=== PATIENT | male | born 1960 | race Hispanic/Latino ===

== ENCOUNTER 2016-12-30 11:05 | Emergency (ER) | payer SELFPAY ==
--- NOTE | 2016-12-30 13:45 | Emergency Department Report ---
HPI - General Chief Complaint: Extremity Injury, Upper Time Seen by Provider: 12/30/16 13:26 - HPI HPI: he is a 56-year-old male who presents to ED complaining of right shoulder pain 2 weeks. Patient states he fell on his right shoulder about 2 weeks ago and hit the shoulder on the bandage. Patient states he thinks it might be dislocated is unsure. Patient states the first 2 days after the incident he was in some moderate pain pain was about a 8 out of 10 intensity throbbing in nature and nonradiating. Patient states now pain is about 4/10. Patient states he made a makeshift sling and has been wearing that for the past 2 weeks. Patient states he just couldn't get it checked because of her whatsoever he might need to have it reduced. Patient mentioned that he also injured his same shoulder above couple years ago. Patient denies fever/chills/nausea/vomiting/abdominal pain/chest pain//headaches /dizziness loss of sensation or any other problems. ED Past Medical Hx - Past Medical History Hx Hypertension: No Hx CVA: No Hx Heart Attack/AMI: No Hx Congestive Heart Failure: No Hx Diabetes: No Hx Deep Vein Thrombosis: No Hx Pulmonary Embolism: No Hx GERD: No Hx Liver Disease: No Hx Renal Disease: No Hx Sickle Cell Disease: No Hx Headaches / Migraines: No Hx Seizures: No Hx Kidney Stones: No Hx Psychiatric Treatment: No Hx Asthma: No Hx COPD: No Hx Tuberculosis: No Hx Dementia: No Hx HIV: No - Social History Smoking Status: Former Smoker Substance Use Type: Alcohol - Medications Home Medications: Home Medications Medication Instructions Recorded Confirmed Last Taken Type Ibuprofen [Motrin] 800 mg PO Q8HR PRN #30 tablet 12/30/16 Unknown Rx Labetalol [Normodyne TAB] 100 mg PO BID #40 tablet 12/30/16 Unknown Rx ED Review of Systems ROS: Stated complaint: RT SHOULDER PAIN Other details as noted in HPI Constitutional: denies: chills, fever Eyes: denies: eye pain, eye discharge, vision change ENT: denies: ear pain, throat pain Respiratory: denies: cough, shortness of breath, wheezing Cardiovascular: denies: chest pain, palpitations Endocrine: no symptoms reported Gastrointestinal: denies: abdominal pain, nausea, diarrhea Genitourinary: denies: urgency, dysuria Musculoskeletal: denies: back pain, joint swelling, arthralgia, myalgia Skin: denies: rash, lesions Neurological: denies: headache, weakness, paresthesias, abnormal gait Psychiatric: homicidal thoughts. denies: anxiety, depression Hematological/Lymphatic: denies: easy bleeding, easy bruising Physical Exam - Physical Exam Vital Signs: Vital Signs 12/30/16 11:08 Temperature 98.1 F Pulse Rate 74 Respiratory 16 Rate Blood Pressure 167/108 O2 Sat by Pulse 100 Oximetry Physical Exam: GENERAL: Alert and oriented x3, no apparent distress, Normal Gait, atraumatic. HEAD: Head is normocephalic and a-traumatic. EYES: Extra ocular muscles are intact. Pupils are equal, round, and reactive to light and accommodation. NECK: Supple. Non edematous, No carotid bruits. No lymphadenopathy or thyromegaly. LUNGS: Symetrical with respiration, No wheezing, no rales or crackles, CTAB. HEART: S1, S2 present, regular rate and rhythm without murmur, no rubs, no gallops. ABDOMEN: No organomegaly was noted,Positive bowel sounds, soft, and non- distended. . Nontender to palpation on all Quadrants, NO CVA tenderness. EXTREMITIES/MUSCULOSKELETAL: No cyanosis, clubbing, rash, lesions or edema. Full ROM bilaterally. UE Pulses 2+ bilaterally. UE 5+ strength bilaterally. Right shoulder looks mildly depressed compared to the left shoulder. Right Shoulder is mildly tender to palpation patient has full range of motion shoulder strength 5+ bilaterally. NEUROLOGIC: No focal Deficit, Cranial nerves II through XII are grossly intact. No loss of sensation, PSYCHIATRIC: Mood is congruent with affect, denies suicidal or homicidal ideations. SKIN: Warm and dry, No lesions, No ulceration or induration present. ED Course Vital Signs 12/30/16 11:08 Temperature 98.1 F Pulse Rate 74 Respiratory 16 Rate Blood Pressure 167/108 O2 Sat by Pulse 100 Oximetry ED Medical Decision Making - Medical Decision Making 66-year-old male presents with shoulder pain ED course: Shoulder x-ray ordered. x-ray shows possible humerus lesser tuberosity fracture;closed nondisplaced. This may be from old injury patient sustained years ago. The patient received clonidine 0.1 mg due to elevated blood pressure. Patient denies history of blood pressure Discussed x-ray findings the patient. Patient put in a sling to discharge. His constipation and follow up with orthopedic doctors as referred. Discussed the fractures heal on their own but needs to be followed up with her orthopedic doctor. Vital signs stable discussed the patient to follow up with primary care physician for management of blood pressure. Critical care attestation.: If time is entered above; I have spent that time in minutes in the direct care of this critically ill patient, excluding procedure time. ED Disposition Clinical Impression: Shoulder injury Qualifiers: Encounter type: initial encounter Laterality: right Qualified Code(s): S49.91XA - Unspecified injury of right shoulder and upper arm, initial encounter Closed fracture of lesser tuberosity of humerus Qualifiers: Encounter type: initial encounter Fracture alignment: nondisplaced Laterality: right Qualified Code(s): S42.264A - Nondisplaced fracture of lesser tuberosity of right humerus, initial encounter for closed fracture Disposition: DISCHARGED TO HOME OR SELFCARE Is pt being admited?: No Does the pt Need Aspirin: No Condition: Stable Instructions: Shoulder Sprain (ED), Arm Fracture in Adults (ED), Arthralgia (ED ) Prescriptions: Ibuprofen [Motrin] 800 mg PO Q8HR PRN #30 tablet PRN Reason: Pain Labetalol [Normodyne TAB] 100 mg PO BID #40 tablet Referrals: PRIMARY CAREMD [Primary Care Provider] - 3-5 Days JURGEN ALMANZA MD [Staff Physician] - 3-5 Days MARIZOL TSAI MD [Staff Physician] - 3-5 Days JU NEFF MD [Referring] - 3-5 Days Forms: Accompanied Note, Work/School Release Form(ED) Time of Disposition: 14:48
[2016-12-30] MEDS ORDERED: CATAPRES PO ONE (13:47)
--- NOTE | 2016-12-30 14:31 | XRay Report ---
Right shoulder 3 views: History: Fall. Findings: There is suspicion of fracture lesser tuberosity right humerus. The articulation of the glenohumeral joint and a.c. joint appears unremarkable. No fracture. Impression: Suspicion of fracture lesser tuberosity right humerus. If clinically indicated CT scan may be advised.
[2016-12-30 15:07] VITALS: BP 148/90
== END 2016-12-30 15:07 | disposition home or self-care (01) ==
LOC: ED 11:05
DX: S42.264A Nondisplaced fracture of lesser tuberosity of right humerus, initial encounter for closed fracture (principal); W18.30XA Fall on same level, unspecified, initial encounter; Y93.9 Activity, unspecified; Y92.9 Unspecified place or not applicable; Y99.9 Unspecified external cause status
CPT/HCPCS: 99284

== ENCOUNTER 2018-07-08 17:14 | Inpatient (IN) | payer SELFPAY ==
[2018-07-08] MEDS ORDERED: NACL 0.9% 1000 ML 1,000 ML IV ONE (18:23)
--- NOTE | 2018-07-08 18:29 | Emergency Department Report ---
<DESEAN VEGA - Last Filed: 07/08/18 20:46> ED General Adult HPI - General Chief complaint: Weakness Stated complaint: GENRAL WEAKNESS Time Seen by Provider: 07/08/18 18:23 - Related Data Previous Rx's Medication Instructions Recorded Last Taken Type Ibuprofen [Motrin] 800 mg PO Q8HR PRN #30 tablet 12/30/16 Unknown Rx Labetalol [Normodyne TAB] 100 mg PO BID #40 tablet 12/30/16 Unknown Rx Allergies Allergy/AdvReac Type Severity Reaction Status Date / Time No Known Allergies Allergy Unverified 11/15/14 18:30 ED Review of Systems ROS: Stated complaint: GENRAL WEAKNESS Other details as noted in HPI ED Past Medical Hx - Medications Home Medications: Home Medications Medication Instructions Recorded Confirmed Last Taken Type Ibuprofen [Motrin] 800 mg PO Q8HR PRN #30 tablet 12/30/16 Unknown Rx Labetalol [Normodyne TAB] 100 mg PO BID #40 tablet 12/30/16 Unknown Rx ED Course Vital Signs 07/08/18 07/08/18 07/08/18 18:08 21:07 21:15 Temperature 98.5 F Pulse Rate 92 H 96 H Respiratory 18 17 Rate Blood Pressure 160/106 132/85 O2 Sat by Pulse 99 97 Oximetry 07/08/18 07/08/18 07/08/18 21:30 21:45 22:01 Temperature Pulse Rate 83 79 81 Respiratory 22 13 9 L Rate Blood Pressure 141/81 155/96 123/82 O2 Sat by Pulse 99 93 97 Oximetry 07/08/18 07/08/18 22:15 22:30 Temperature Pulse Rate 78 79 Respiratory 12 10 L Rate Blood Pressure 120/84 122/81 O2 Sat by Pulse 97 97 Oximetry ED Medical Decision Making - Lab Data Result diagrams: 07/08/18 18:42 07/08/18 18:42 - Medical Decision Making I assessed patient. He presents with severe generalized weakness. He was unable to walk at his job. 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 He has had epigastric pain for 5 days. Has not drank beer for the past 5 days. Patient has several findings on diagnostics performed in ED. I did observe tea colored urine at the bedside. Typically drinks 3-5 beers daily. 1. Diverticulitis 2. Esophagitis 3. Pancreatitis 4. Hyponatremia 5. Fatty liver Admitted to hospitalist service for further treatment and evaluation. IVF and abx initiated in ED. Critical care attestation.: If time is entered above; I have spent that time in minutes in the direct care of this critically ill patient, excluding procedure time. ED Disposition Clinical Impression: Rhabdomyolysis, Pancreatitis, Diverticulitis, Fatty liver, Hyponatremia, Alcohol abuse, Esophagitis Disposition: OP ADMIT IP TO THIS HOSP Is pt being admited?: Yes Does the pt Need Aspirin: No Condition: Stable <AUDRA CALDWELL - Last Filed: 07/09/18 20:12> ED General Adult HPI - General Source: patient Mode of arrival: Stretcher Limitations: No Limitations - History of Present Illness Initial comments: Patient is 58 years old male with no significant past medical history. Patient presented to the ER with generalized weakness, chest pain and abdominal pain. Patient stated that his symptoms is been going on for 3 days. Patient stated that he does not remember the last time he checked with her doctor. He stated that he was a heavy smoker until 3 months ago. He is also a heavy drinker. The patient stated that he does not have any appetite for the last 3 days. He denied any vomiting or diarrhea. He also denied any fever or chills. ED Review of Systems Comment: All other systems reviewed and negative Constitutional: denies: chills, fever ENT: denies: ear pain, throat pain, dental pain, hearing loss Respiratory: orthopnea, shortness of breath, SOB with exertion. denies: cough, wheezing Cardiovascular: dyspnea on exertion. denies: chest pain, palpitations Gastrointestinal: nausea. denies: abdominal pain, vomiting, diarrhea, constipation, hematemesis, melena, hematochezia Genitourinary: denies: dysuria Neurological: weakness. denies: headache, numbness, paresthesias, confusion, abnormal gait ED Past Medical Hx - Past Medical History Hx Hypertension: No Hx CVA: No Hx Heart Attack/AMI: No Hx Congestive Heart Failure: No Hx Diabetes: No Hx Deep Vein Thrombosis: No Hx Pulmonary Embolism: No Hx GERD: No Hx Liver Disease: No Hx Renal Disease: No Hx Sickle Cell Disease: No Hx Headaches / Migraines: No Hx Seizures: No Hx Kidney Stones: No Hx Psychiatric Treatment: No Hx Asthma: No Hx COPD: No Hx Tuberculosis: No Hx Dementia: No Hx HIV: No - Social History Smoking Status: Former Smoker Substance Use Type: Alcohol ED Physical Exam - General Limitations: No Limitations General appearance: alert, in no apparent distress - Head Head exam: Present: atraumatic, normocephalic, normal inspection - Eye Eye exam: Present: normal appearance, PERRL - ENT ENT exam: Present: mucous membranes dry - Neck Neck exam: Present: normal inspection, full ROM. Absent: tenderness, meningismus, lymphadenopathy, thyromegaly - Respiratory Respiratory exam: Present: normal lung sounds bilaterally. Absent: respiratory distress, wheezes, rales, rhonchi, stridor, chest wall tenderness, accessory muscle use, decreased breath sounds, prolonged expiratory - Cardiovascular Cardiovascular Exam: Present: regular rate, normal rhythm, normal heart sounds - GI/Abdominal GI/Abdominal exam: Present: soft, tenderness, normal bowel sounds. Absent: distended, guarding, rebound, rigid, organomegaly, mass, bruit, pulsatile mass, hernia - Extremities Exam Extremities exam: Present: normal inspection, full ROM, normal capillary refill. Absent: pedal edema, calf tenderness - Back Exam Back exam: Present: normal inspection, full ROM. Absent: tenderness, CVA tenderness (R), CVA tenderness (L), muscle spasm, paraspinal tenderness, vertebral tenderness, rash noted - Neurological Exam Neurological exam: Present: alert, oriented X3, CN II-XII intact - Skin Skin exam: Present: warm, dry, intact ED Medical Decision Making - Lab Data Result diagrams: 07/09/18 03:22 07/09/18 03:22 - Radiology Data Radiology results: report reviewed Referring Physician: AUDRA CALDWELL Patient Name: MARJORIE CHIU Date of : 1960 Sex: Male Report Date: 2018-07-08 Report Status: Finalized Findings [facility] [address] [place] [address] XRay Report Signed Patient: MARJORIE CHIU MR#: [id number] : 1960 Acct:[id number] Age/Sex: 58 / M ADM Date: 07/08/18 Loc: ED Attending Dr: Ordering Physician: AUDRA CALDWELL Date of Service: 07/08/18 Procedure(s): XR chest 1V ap Accession Number(s): [id number] cc: AUDRA CALDWELL Fluoro Time In Minutes: FINAL REPORT EXAM: XR CHEST 1V AP HISTORY: Weakness TECHNIQUE: Single, portable chest x-ray. PRIORS: None. FINDINGS: Cardiac and mediastinal silhouette within normal limits. Lungs are normally expanded. No significant vascular congestion. No focal consolidation or apparent pneumothorax. Bony thorax grossly unremarkable. IMPRESSION: 1. No acute findings. Transcribed By: [facility] Dictated By: FLEX VELA MD Electronically Authenticated By: FLEX VELA MD Signed Date/Time: 07/08/181906 DD/ 06 TD/TT: 07/08/181906 Critical Care Time: Yes Critical care time in (mins) excluding proc time.: 30 ED Disposition Is pt being admited?: Yes Does the pt Need Aspirin: No
[2018-07-08 19:00] LABS: Hematocrit 34.8 % (35.5-45.6); Mean Corpuscular HGB Conc 35 % (32-34); Mean Corpuscular Hemoglobin 35 pg (28-32); Mean Corpuscular Volume 102 fl (84-94); Platelet Count 187 K/mm3 (140-440); Red Blood Count 3.42 M/mm3 (3.65-5.03); Red Cell Distribution Width 12.2 % (13.2-15.2)
[2018-07-08 19:03] LABS: INR 0.95 (0.87-1.13)
--- NOTE | 2018-07-08 19:10 | XRay Report ---
FINAL REPORT EXAM: XR CHEST 1V AP HISTORY: Weakness TECHNIQUE: Single, portable chest x-ray. PRIORS: None. FINDINGS: Cardiac and mediastinal silhouette within normal limits. Lungs are normally expanded. No significant vascular congestion. No focal consolidation or apparent pneumothorax. Bony thorax grossly unremarkable. IMPRESSION: 1. No acute findings.
[2018-07-08 19:15] LABS: Albumin 3.5 g/dL (3.9-5); Bilirubin,Direct 1.2 mg/dL (0-0.2)
[2018-07-08 19:16] LABS: BUN/Creatinine Ratio 46; Blood Urea Nitrogen 23 mg/dL (9-20); Calcium 8.4 mg/dL (8.4-10.2); Hemolysis Index 19
[2018-07-08 19:40] LABS: Bilirubin,Urine NEG (Negative); Blood,Urine SM (Negative); Color,Urine Amber (Yellow); Hyaline Casts,Urine 1 /LPF; Mucus,Urine FEW /HPF
[2018-07-08 20:05] LABS: Total Cells Counted 100
[2018-07-08 20:06] LABS: Band Neutrophils # (Manual) 0.2 K/mm3; Basophils % (Manual) 0 % (0.0-1.8); Eosinophils % (Manual) 0 % (0.0-4.3); Macrocytosis 1+; Platelet Estimate Consistent w Auto
[2018-07-08] MEDS ORDERED: PROTONIX IV ONE (20:52)
[2018-07-08] MEDS ORDERED: ZOFRAN IV ONE (20:52)
[2018-07-08] MEDS ORDERED: MORPHINE IV ONE (20:52)
[2018-07-08] MEDS ORDERED: ZOSYN/NS 4.5GM/100ML 4.5 GM/100 ML VIAL IV SCH (21:00)
--- NOTE | 2018-07-08 21:38 | Cat Scan Report ---
FINAL REPORT EXAM: CT ABDOMEN PELVIS W CON HISTORY: abdominal pain TECHNIQUE: Spiral CT scanning of the abdomen and pelvis after the uneventful administration of IV contrast. Multiplanar reformations. 100 mL Omnipaque IV. PRIORS: None. FINDINGS: Abdomen: Visualized lung bases show minimal left pleural fluid. Mild cardiomegaly. Bowel Distal esophagus and EG junction decompressed, with questionable wall thickening and amorphous and heterogeneous soft tissue density in the posterior mediastinum partially surrounding the distal thoracic aorta, which may be postinflammatory, but nonspecific. No radiopaque gallstones. Liver shows diffusely decreased attenuation without focal abnormality. Spleen without significant abnormality. Pancreatic head prominent and mildly lobular, nonspecific. Dystrophic calcifications in the uncinate process and heterogeneous enhancement in the distal pancreatic body, with possible cystic change measuring approximately 1.5 cm. No significant peripancreatic fat stranding or inflammatory infiltration. Kidneys without significant abnormality. Adrenal glands without significant abnormality. Pelvis: Diverticular changes scattered in the colon, with bowel wall and fold thickening and pericolonic fat stranding in the proximal-mid descending colon. Remainder of bowel grossly unremarkable. Appendix within normal limits. No significant free peritoneal fluid or discrete abscess. Diffuse aortoiliac calcification without aneurysmal dilatation. Degenerative changes in thoracolumbar spine. Partially bridging osteophyte formations in left SI joint and pubic symphysis region. IMPRESSION: 1. Findings compatible with descending colon diverticulitis. 2. Findings which may represent nonspecific postinflammatory change in the distal esophagus or esophagitis, including phlegmonous change in the surrounding soft tissues, as reported. Exact etiology uncertain, and clinical correlation along with followup may be warranted. 3. Findings compatible with fatty infiltration in the liver. 4. Findings suggesting sequelae of postinflammatory change involving the pancreas, probably chronic, with prominent head and possible cystic change or pseudocyst formation in the distal body, although exact etiology or chronicity uncertain. Clinical correlation with appropriate laboratory values and followup suggested, as clinically indicated.
[2018-07-08] MEDS ORDERED: MORPHINE IV PRN (21:58)
[2018-07-08] MEDS ORDERED: ZOFRAN IV PRN (21:58)
[2018-07-08] MEDS ORDERED: TYLENOL PO PRN (21:58)
[2018-07-08] MEDS ORDERED: SODIUM CHLORIDE FLUSH SYRINGE 10 ML IV PRN (21:58)
[2018-07-08] MEDS ORDERED: ATIVAN IV PRN ×2 (22:01)
[2018-07-08] MEDS: SODIUM CHLORIDE FLUSH SYRINGE 10 ML IV SCH (22:17)
--- NOTE | 2018-07-08 22:17 | History and Physical Report ---
History of Present Illness Date of examination: 07/08/18 History of present illness: 58-year-old man with a history of alcohol abuse comes emergency room with complaints of abdominal pain in the epigastric area, he is unclear when he started. The pain is intermittent in nature over one hour, sharp, no radiation , intensity 7/10, relieved with pain medications.. Denies nausea vomiting, fever. His last drink was 5 days ago Review of systems Constitutional: no weight loss, chills, fever Ears, eyes, nose, mouth and throat: no nasal congestion, no nasal discharge, no sinus pressure, no vision change, no red eye. Neck: No neck pain or rigidity. Cardiovascular: no chest pain, palpitations Respiratory: no cough, shortness of breath Gastrointestinal: no hematochezia Genitourinary : no frequency , no hematuria Musculoskeletal: no joint swelling or muscle ache Integumentary: no rash, no pruritis Neurological: no parathesias, no numbness, no focal weakness Endocrine: no cold or heat intolerance, no polyuria or polydipsia Hematologic/Lymphatic: no easy bruising, no easy bleeding, no gland swelling Allergic/Immunologic: no urticaria, no angioedema. PAST MEDICAL HISTORY: alcohol abuse PAST SURGICAL HISTORY: None SOCIAL HISTORY: Drinks a lot, no drugs, quit tobacco FAMILY HISTORY: Hypertension Medications and Allergies Allergies Allergy/AdvReac Type Severity Reaction Status Date / Time No Known Allergies Allergy Unverified 11/15/14 18:30 Home Medications Medication Instructions Recorded Confirmed Last Taken Type Ibuprofen [Motrin] 800 mg PO Q8HR PRN #30 tablet 12/30/16 Unknown Rx Labetalol [Normodyne TAB] 100 mg PO BID #40 tablet 12/30/16 Unknown Rx Active Meds: Active Medications Acetaminophen (Tylenol) 650 mg PO Q4H PRN PRN Reason: Pain MILD(1-3)/Fever >100.5/MAR Enoxaparin Sodium (Lovenox) 30 mg SUB-Q QDAY COTY Levofloxacin/Dextrose (Levaquin 750mg/150ml) 750 mg in 150 mls @ 100 mls/hr IV Q24H COTY Metronidazole (Flagyl 500 Mg/100 Ml) 500 mg in 100 mls @ 100 mls/hr IV Q8HR COTY ; Protocol Sodium Chloride (Nacl 0.9% 1000 Ml) 1,000 mls @ 150 mls/hr IV DIRECT COTY Morphine Sulfate (Morphine) 2 mg IV Q4H PRN PRN Reason: Pain, Moderate (4-6) Ondansetron HCl (Zofran) 4 mg IV Q8H PRN PRN Reason: Nausea And Vomiting Sodium Chloride (Sodium Chloride Flush Syringe 10 Ml) 10 ml IV BID COTY Sodium Chloride (Sodium Chloride Flush Syringe 10 Ml) 10 ml IV PRN PRN PRN Reason: LINE FLUSH Exam - Physical Exam Narrative exam: Gen. appearance: Patient lying in bed, no apparent distress HEENT: Normocephalic, atraumatic, pupils equally round and reactive to light, extraocular movement intact, and no sclericterus,. No JVD or thyromegaly or nodule,neck supple, no carotid bruit ,mucous membranes moist, no exudate or erythema Heart: S1, S2, regular rate and rhythm Lungs: Clear bilaterally, breathing comfortable Abdomen: Positive bowel sounds, tender in the epigastric, left lower quadrant, nondistended, no organomegaly Extremity:no edema cyanosis, clubbing Skin: no rash, dry, warm Neuro: Oriented 3, cranial nerves II-12 intact, speech is fluent, motor and sensory intact - Constitutional Vitals: Temp Pulse Resp BP Pulse Ox 98.5 F 96 H 17 132/85 97 07/08/18 18:08 07/08/18 21:15 07/08/18 21:15 07/08/18 21:15 07/08/18 21:15 Results - Labs CBC & Chem 7: 07/09/18 03:22 07/09/18 03:22 Labs: Abnormal lab results 07/08/18 07/08/18 07/08/18 Range/Units 18:42 18:42 18:42 RBC 3.42 L (3.65-5.03) M/mm3 Hct 34.8 L (35.5-45.6) % MCV 102 H (84-94) fl MCH 35 H (28-32) pg MCHC 35 H (32-34) % RDW 12.2 L (13.2-15.2) % Seg Neuts % (Manual) 93.0 H (40.0-70.0) % Lymphocytes % (Manual) 1.0 L (13.4-35.0) % Lymphocytes # (Manual) 0.1 L (1.2-5.4) K/mm3 Sodium 125 L (137-145) mmol/L Chloride 84.8 L (98-107) mmol/L BUN 23 H (9-20) mg/dL Creatinine 0.5 L (0.8-1.5) mg/dL Glucose 107 H (75-100) mg/dL Total Bilirubin 3.00 H (0.1-1.2) mg/dL Direct Bilirubin 1.2 H (0-0.2) mg/dL AST 173 H (5-40) units/L ALT 73 H (7-56) units/L Total Creatine Kinase 2923 H (55-170) units/L Albumin 3.5 L (3.9-5) g/dL Lipase 378 H (13-60) units/L Urine WBC (Auto) (0.0-6.0) /HPF 07/08/18 Range/Units 19:18 RBC (3.65-5.03) M/mm3 Hct (35.5-45.6) % MCV (84-94) fl MCH (28-32) pg MCHC (32-34) % RDW (13.2-15.2) % Seg Neuts % (Manual) (40.0-70.0) % Lymphocytes % (Manual) (13.4-35.0) % Lymphocytes # (Manual) (1.2-5.4) K/mm3 Sodium (137-145) mmol/L Chloride (98-107) mmol/L BUN (9-20) mg/dL Creatinine (0.8-1.5) mg/dL Glucose (75-100) mg/dL Total Bilirubin (0.1-1.2) mg/dL Direct Bilirubin (0-0.2) mg/dL AST (5-40) units/L ALT (7-56) units/L Total Creatine Kinase (55-170) units/L Albumin (3.9-5) g/dL Lipase (13-60) units/L Urine WBC (Auto) 7.0 H (0.0-6.0) /HPF - Imaging and Cardiology CT scan - abdomen: report reviewed CT scan - pelvis: report reviewed Assessment and Plan Assessment Acute diverticulitis Alcohol abuse Plan Admit to medicine Start IV fluids, bowel rest Start IV Levaquin, Flagyl, morphine, CIWA protocol consult GI DVT prophalaxis
[2018-07-08] MEDS: FLAGYL 500 MG/100 ML 500 MG/100 ML BAG IV SCH (22:36)
[2018-07-09] MEDS: LEVAQUIN 750MG/150ML 750 MG/150 ML BAG IV SCH ×2 (00:07→22:13)
[2018-07-09] MEDS: NACL 0.9% 1000 ML 1,000 ML IV SCH ×2 (00:08→21:04)
[2018-07-09 03:52] LABS: Basophils # (Auto) 0.1 K/mm3 (0.0-0.1); Basophils % (Auto) 1.1 % (0.0-1.8); Eosinophils % (Auto) 0.2 % (0.0-4.3); Hematocrit 33.3 % (35.5-45.6); Hemoglobin 11.3 gm/dl (11.8-15.2); Lymphocytes % (Auto) 15.4 % (13.4-35.0); Mean Corpuscular HGB Conc 34 % (32-34); Mean Corpuscular Hemoglobin 35 pg (28-32); Mean Corpuscular Volume 102 fl (84-94); Monocytes % (Auto) 15.3 % (0.0-7.3); Red Blood Count 3.26 M/mm3 (3.65-5.03); Red Cell Distribution Width 12.4 % (13.2-15.2)
[2018-07-09 04:10] LABS: BUN/Creatinine Ratio 43; Blood Urea Nitrogen 17 mg/dL (9-20); Calcium 7.9 mg/dL (8.4-10.2); Hemolysis Index 13
[2018-07-09 04:21] LABS: Platelet Count 169 K/mm3 (140-440)
[2018-07-09] MEDS: FLAGYL 500 MG/100 ML 500 MG/100 ML BAG IV SCH ×3 (06:49→21:04)
[2018-07-09] MEDS ORDERED: LOVENOX SUB-Q SCH (10:00)
[2018-07-09] MEDS: LOVENOX SUB-Q SCH (10:03)
[2018-07-09] MEDS: SODIUM CHLORIDE FLUSH SYRINGE 10 ML IV SCH ×2 (10:04→21:04)
--- NOTE | 2018-07-09 10:51 | Progress Note ---
Assessment and Plan Assessment and plan: 58-year-old male with past medical history significant for alcohol abuse presented to the emergency department complaining of epigastric pain. Patient denied nausea, vomiting, diarrhea. In the ED CT of abdomen and pelvis was done and was significant for pancreatitis, diverticulitis and esophagitis. Diverticulitis - Patient is on IV Levaquin and Flagyl - GI consulted Pancreatitis - Bowel rest, pain control - Consulted about cessation of using alcohol Esophagitis - PPI Alcohol abuse -Patient is on [facility] protocol DVT prophylaxis - On Lovenox Disposition - Continue inpatient care History Interval history: Patient was seen and evaluated this morning, patient is complaining of abdominal pain. No nausea or vomiting. Hospitalist Physical - Physical exam Narrative exam: Not in cardiopulmonary distress. The patient appeared well nourished and normally developed. Vital signs as documented. Head exam is unremarkable. No scleral icterus . Neck is without jugular venous distension, thyromegaly, or carotid bruits. Lungs are clear to auscultation. Cardiac exam reveals regular rate and Rhythm. First and second heart sounds normal. No murmurs, rubs or gallops. Abdominal exam reveals mild abdominal tenderness. Extremities are nonedematous and both femoral and pedal pulses are normal. [employer]: Alert and oriented 3. No focal weakness. - Constitutional Vitals: Temp Pulse Resp BP Pulse Ox 98.2 F 98 H 18 159/100 97 07/09/18 07:35 07/09/18 09:00 07/09/18 07:35 07/09/18 07:35 07/09/18 07:35 Results - Labs CBC & Chem 7: 07/09/18 03:22 07/09/18 03:22 Labs: Laboratory Last Values WBC 6.4 K/mm3 (4.5-11.0) 07/09/18 03:22 RBC 3.26 M/mm3 (3.65-5.03) L 07/09/18 03:22 Hgb 11.3 gm/dl (11.8-15.2) L 07/09/18 03:22 Hct 33.3 % (35.5-45.6) L 07/09/18 03:22 MCV 102 fl (84-94) H 07/09/18 03:22 MCH 35 pg (28-32) H 07/09/18 03:22 MCHC 34 % (32-34) 07/09/18 03:22 RDW 12.4 % (13.2-15.2) L 07/09/18 03:22 Plt Count 169 K/mm3 (140-440) 07/09/18 03:22 Lymph % (Auto) 15.4 % (13.4-35.0) 07/09/18 03:22 [place] % (Auto) 15.3 % (0.0-7.3) H 07/09/18 03:22 Eos % (Auto) 0.2 % (0.0-4.3) 07/09/18 03:22 Baso % (Auto) 1.1 % (0.0-1.8) 07/09/18 03:22 Lymph # 1.0 K/mm3 (1.2-5.4) L 07/09/18 03:22 [place]inger # 1.0 K/mm3 (0.0-0.8) H 07/09/18 03:22 Eos # 0.0 K/mm3 (0.0-0.4) 07/09/18 03:22 Baso # 0.1 K/mm3 (0.0-0.1) 07/09/18 03:22 Add Manual Diff Complete 07/08/18 18:42 Total Counted 100 07/08/18 18:42 Seg Neutrophils % 68.0 % (40.0-70.0) 07/09/18 03:22 Seg Neuts % (Manual) 93.0 % (40.0-70.0) H 07/08/18 18:42 Band Neutrophils % 3.0 % 07/08/18 18:42 Lymphocytes % (Manual) 1.0 % (13.4-35.0) L 07/08/18 18:42 Reactive Lymphs % (Man) 0 % 07/08/18 18:42 Monocytes % (Manual) 3.0 % (0.0-7.3) 07/08/18 18:42 Eosinophils % (Manual) 0 % (0.0-4.3) 07/08/18 18:42 Basophils % (Manual) 0 % (0.0-1.8) 07/08/18 18:42 Metamyelocytes % 0 % 07/08/18 18:42 Myelocytes % 0 % 07/08/18 18:42 Promyelocytes % 0 % 07/08/18 18:42 Blast Cells % 0 % 07/08/18 18:42 Nucleated RBC % Not Reportable 07/08/18 18:42 Seg Neutrophils # 4.3 K/mm3 (1.8-7.7) 07/09/18 03:22 Seg Neutrophils # Man 7.0 K/mm3 (1.8-7.7) 07/08/18 18:42 Band Neutrophils # 0.2 K/mm3 07/08/18 18:42 Lymphocytes # (Manual) 0.1 K/mm3 (1.2-5.4) L 07/08/18 18:42 Abs React Lymphs (Man) 0.0 K/mm3 07/08/18 18:42 Monocytes # (Manual) 0.2 K/mm3 (0.0-0.8) 07/08/18 18:42 Eosinophils # (Manual) 0.0 K/mm3 (0.0-0.4) 07/08/18 18:42 Basophils # (Manual) 0.0 K/mm3 (0.0-0.1) 07/08/18 18:42 Metamyelocytes # 0.0 K/mm3 07/08/18 18:42 Myelocytes # 0.0 K/mm3 07/08/18 18:42 Promyelocytes # 0.0 K/mm3 07/08/18 18:42 Blast Cells # 0.0 K/mm3 07/08/18 18:42 WBC Morphology Not Reportable 07/08/18 18:42 Hypersegmented Neuts Not Reportable 07/08/18 18:42 Hyposegmented Neuts Not Reportable 07/08/18 18:42 Hypogranular Neuts Not Reportable 07/08/18 18:42 Smudge Cells Not Reportable 07/08/18 18:42 Toxic Granulation Not Reportable 07/08/18 18:42 Toxic Vacuolation Not Reportable 07/08/18 18:42 Dohle Bodies Not Reportable 07/08/18 18:42 Pelger-Huet Anomaly Not Reportable 07/08/18 18:42 Otto Rods Not Reportable 07/08/18 18:42 Platelet Estimate Consistent w auto 07/08/18 18:42 Clumped Platelets Not Reportable 07/08/18 18:42 Plt Clumps, EDTA Not Reportable 07/08/18 18:42 Large Platelets Not Reportable 07/08/18 18:42 Giant Platelets Not Reportable 07/08/18 18:42 Platelet Satelliting Not Reportable 07/08/18 18:42 Plt Morphology Comment Not Reportable 07/08/18 18:42 RBC Morphology Not Reportable 07/08/18 18:42 Dimorphic RBCs Not Reportable 07/08/18 18:42 Polychromasia Not Reportable 07/08/18 18:42 Hypochromasia Not Reportable 07/08/18 18:42 Poikilocytosis Not Reportable 07/08/18 18:42 Anisocytosis Not Reportable 07/08/18 18:42 Microcytosis Not Reportable 07/08/18 18:42 Macrocytosis 1+ 07/08/18 18:42 Spherocytes Not Reportable 07/08/18 18:42 Pappenheimer Bodies Not Reportable 07/08/18 18:42 Sickle Cells Not Reportable 07/08/18 18:42 Target Cells Not Reportable 07/08/18 18:42 Tear Drop Cells Not Reportable 07/08/18 18:42 Ovalocytes Not Reportable 07/08/18 18:42 Helmet Cells Not Reportable 07/08/18 18:42 [place] Bodies Not Reportable 07/08/18 18:42 [place] Rings Not Reportable 07/08/18 18:42 [place] Cells Not Reportable 07/08/18 18:42 Bite Cells Not Reportable 07/08/18 18:42 Crenated Cell Not Reportable 07/08/18 18:42 Elliptocytes Not Reportable 07/08/18 18:42 Acanthocytes (Spur) Not Reportable 07/08/18 18:42 Rouleaux Not Reportable 07/08/18 18:42 Hemoglobin C Crystals Not Reportable 07/08/18 18:42 Schistocytes Not Reportable 07/08/18 18:42 Malaria parasites Not Reportable 07/08/18 18:42 Joey Bodies Not Reportable 07/08/18 18:42 Hem Pathologist Commnt No 07/08/18 18:42 PT 13.2 Sec. (12.2-14.9) 07/08/18 18:42 INR 0.95 (0.87-1.13) 07/08/18 18:42 Sodium 129 mmol/L (137-145) L 07/09/18 03:22 Potassium 3.5 mmol/L (3.6-5.0) L 07/09/18 03:22 Chloride 90.3 mmol/L (98-107) L 07/09/18 03:22 Carbon Dioxide 24 mmol/L (22-30) 07/09/18 03:22 Anion Gap 18 mmol/L 07/09/18 03:22 BUN 17 mg/dL (9-20) 07/09/18 03:22 Creatinine 0.4 mg/dL (0.8-1.5) L 07/09/18 03:22 Estimated GFR > 60 ml/min 07/09/18 03:22 BUN/Creatinine Ratio 43 % 07/09/18 03:22 Glucose 78 mg/dL (75-100) 07/09/18 03:22 Calcium 7.9 mg/dL (8.4-10.2) L 07/09/18 03:22 Magnesium 2.20 mg/dL (1.7-2.3) 07/08/18 18:42 Total Bilirubin 3.00 mg/dL (0.1-1.2) H 07/08/18 18:42 Direct Bilirubin 1.2 mg/dL (0-0.2) H 07/08/18 18:42 Indirect Bilirubin 1.8 mg/dL 07/08/18 18:42 AST 173 units/L (5-40) H 07/08/18 18:42 ALT 73 units/L (7-56) H 07/08/18 18:42 Alkaline Phosphatase 88 units/L (35-129) 07/08/18 18:42 Total Creatine Kinase 2923 units/L (55-170) H 07/08/18 18:42 Troponin T < 0.010 ng/mL (0.00-0.029) 07/08/18 21:03 NT-Pro-B Natriuret Pep 497.4 pg/mL (0-900) 07/08/18 18:42 Total Protein 6.9 g/dL (6.3-8.2) 07/08/18 18:42 Albumin 3.5 g/dL (3.9-5) L 07/08/18 18:42 Albumin/Globulin Ratio 1.0 % 09/29/18 18:42 Lipase 378 units/L (13-60) H 07/08/18 18:42 Urine Color [place] (Yellow) 07/08/18 19:18 Urine Turbidity Slightly-cloudy (Clear) 07/08/18 19:18 Urine pH 6.0 (5.0-7.0) 07/08/18 19:18 Ur Specific [place] 1.028 (1.003-1.030) 07/08/18 19:18 Urine Protein 30 mg/dl mg/dL (Negative) 07/08/18 19:18 Urine Glucose (UA) Neg mg/dL (Negative) 07/08/18 19:18 Urine Ketones 20 mg/dL (Negative) 07/08/18 19:18 Urine Blood Sm (Negative) 07/08/18 19:18 Urine Nitrite Neg (Negative) 07/08/18 19:18 Urine Bilirubin Neg (Negative) 07/08/18 19:18 Urine Urobilinogen 4.0 mg/dL (<2.0) 07/08/18 19:18 Ur Leukocyte Esterase Neg (Negative) 07/08/18 19:18 Urine WBC (Auto) 7.0 /HPF (0.0-6.0) H 07/08/18 19:18 Urine RBC (Auto) 5.0 /HPF (0.0-6.0) 07/08/18 19:18 Hyaline Casts 1 /LPF 07/08/18 19:18 Urine Mucus Few /HPF 07/08/18 19:18
[2018-07-09] MEDS ORDERED: AFLURIA QUAD 2018-2019 SYRINGE IM ONE (12:00)
[2018-07-09] MEDS: KCL 10MEQ/100ML 10 MEQ/100 ML BAG IV SCH ×2 (12:28→15:54)
--- NOTE | 2018-07-09 19:20 | Consultation ---
History of Present Illness - Reason for Consult Consult date: 07/09/18 pancreatitis - History of Present Illness Mr. 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 He states that he came in because of weakness in his legs especially over the last few days. ER notes an admitting H&P document that he came in with abdominal pain. Patient denies this. He states he is not having any abdominal pain, nausea, or vomiting. He denies fevers chills or sweats. He states that his bowel movements are regular on it once a day basis without any GI bleeding. He denies dysphagia. He denies known history of pancreatitis. He states that he has not had any beer in the last week or so. He states he usually only drinks beer and not other liquor. Patient states that he quit smoking 3 months ago. He denies weight loss. He denies any prior chest disease. Past History Past Medical History: No medical history, other Past Surgical History: No surgical history Social history: alcohol abuse (as noted). denies: smoking Family history: no significant family history Medications and Allergies Allergies Allergy/AdvReac Type Severity Reaction Status Date / Time No Known Allergies Allergy Unverified 11/15/14 18:30 Home Medications Medication Instructions Recorded Confirmed Last Taken Type Ibuprofen [Motrin] 800 mg PO Q8HR PRN #30 tablet 12/30/16 Unknown Rx Labetalol [Normodyne TAB] 100 mg PO BID #40 tablet 12/30/16 Unknown Rx Active Meds: Active Medications Acetaminophen (Tylenol) 650 mg PO Q4H PRN PRN Reason: Pain MILD(1-3)/Fever >100.5/MAR Enoxaparin Sodium (Lovenox) 40 mg SUB-Q QDAY@1000 [facility] Last Admin: 07/09/18 10:03 Dose: 40 mg Hydralazine HCl (Apresoline) 10 mg IV Q4H PRN PRN Reason: BP > 160/100 Levofloxacin/Dextrose (Levaquin 750mg/150ml) 750 mg in 150 mls @ 100 mls/hr IV Q24H [facility] Last Admin: 07/09/18 00:07 Dose: 100 mls/hr Metronidazole (Flagyl 500 Mg/100 Ml) 500 mg in 100 mls @ 100 mls/hr IV Q8HR [facility] ; Protocol Last Admin: 07/09/18 16:52 Dose: 100 mls/hr Sodium Chloride (Nacl 0.9% 1000 Ml) 1,000 mls @ 150 mls/hr IV DIRECT [facility] Last Admin: 07/09/18 00:08 Dose: 150 mls/hr Lorazepam (Ativan) 4 mg IV Q1HR PRN PRN Reason: CIWA-Ar 16-25 Lorazepam (Ativan) 2 mg IV Q1HR PRN PRN Reason: CIWA-Ar 8-15 Morphine Sulfate (Morphine) 2 mg IV Q4H PRN PRN Reason: Pain, Moderate (4-6) Ondansetron HCl (Zofran) 4 mg IV Q8H PRN PRN Reason: Nausea And Vomiting Sodium Chloride (Sodium Chloride Flush Syringe 10 Ml) 10 ml IV BID [facility] Last Admin: 07/09/18 10:04 Dose: 10 ml Sodium Chloride (Sodium Chloride Flush Syringe 10 Ml) 10 ml IV PRN PRN PRN Reason: LINE FLUSH Review of Systems All systems: negative (as noted in HPI) Exam - Constitutional Vitals: Temp Pulse Resp BP Pulse Ox 97.9 F 67 18 169/72 100 07/09/18 17:34 07/09/18 17:34 07/09/18 17:34 07/09/18 17:34 07/09/18 17:34 General appearance: Present: no acute distress - EENT Eyes: Present: PERRL, EOM intact ENT: hearing intact, poor dentition - Respiratory Respiratory effort: normal Respiratory: bilateral: CTA - Cardiovascular Rhythm: regular Heart Sounds: Present: S1 & S2 - Extremities Extremities: No edema - Abdominal General gastrointestinal: Present: soft, non-tender Results - Labs CBC & Chem 7: 07/09/18 03:22 07/09/18 03:22 Labs: Abnormal lab results 07/08/18 07/08/18 07/08/18 Range/Units 18:42 18:42 18:42 RBC (3.65-5.03) M/mm3 Hgb (11.8-15.2) gm/dl Hct (35.5-45.6) % MCV (84-94) fl MCH (28-32) pg RDW (13.2-15.2) % [place] % (Auto) (0.0-7.3) % Lymph # (1.2-5.4) K/mm3 [place] # (0.0-0.8) K/mm3 Seg Neuts % (Manual) 93.0 H (40.0-70.0) % Lymphocytes % (Manual) 1.0 L (13.4-35.0) % Lymphocytes # (Manual) 0.1 L (1.2-5.4) K/mm3 Sodium 125 L (137-145) mmol/L Potassium (3.6-5.0) mmol/L Chloride 84.8 L (98-107) mmol/L BUN 23 H (9-20) mg/dL Creatinine 0.5 L (0.8-1.5) mg/dL Glucose 107 H (75-100) mg/dL Calcium (8.4-10.2) mg/dL Total Bilirubin 3.00 H (0.1-1.2) mg/dL Direct Bilirubin 1.2 H (0-0.2) mg/dL AST 173 H (5-40) units/L ALT 73 H (7-56) units/L Total Creatine Kinase 2923 H (55-170) units/L Albumin 3.5 L (3.9-5) g/dL Lipase 378 H (13-60) units/L Urine WBC (Auto) (0.0-6.0) /HPF 07/08/18 07/09/18 07/09/18 Range/Units 19:18 03:22 03:22 RBC 3.26 L (3.65-5.03) M/mm3 Hgb 11.3 L (11.8-15.2) gm/dl Hct 33.3 L (35.5-45.6) % MCV 102 H (84-94) fl MCH 35 H (28-32) pg RDW 12.4 L (13.2-15.2) % [place] % (Auto) 15.3 H (0.0-7.3) % Lymph # 1.0 L (1.2-5.4) K/mm3 [place] # 1.0 H (0.0-0.8) K/mm3 Seg Neuts % (Manual) (40.0-70.0) % Lymphocytes % (Manual) (13.4-35.0) % Lymphocytes # (Manual) (1.2-5.4) K/mm3 Sodium 129 L (137-145) mmol/L Potassium 3.5 L (3.6-5.0) mmol/L Chloride 90.3 L (98-107) mmol/L BUN (9-20) mg/dL Creatinine 0.4 L (0.8-1.5) mg/dL Glucose (75-100) mg/dL Calcium 7.9 L (8.4-10.2) mg/dL Total Bilirubin (0.1-1.2) mg/dL Direct Bilirubin (0-0.2) mg/dL AST (5-40) units/L ALT (7-56) units/L Total Creatine Kinase (55-170) units/L Albumin (3.9-5) g/dL Lipase (13-60) units/L Urine WBC (Auto) 7.0 H (0.0-6.0) /HPF Assessment and Plan 1. Abd pain, N/V - pt denies, and wants to eat. 2. Chronic calcific pancreatitis - on CT, with cystic lesion. - will check CA19-9 - may need outpatient EUS 3. Elevated transaminases - pattern c/w alcoholic hepatitis, and not obstruction. - abstinence and follow as outpatient. 4. Mediastinal abnormality on CT - per Hospitalist
[2018-07-10 04:38] LABS: Hematocrit 33.2 % (35.5-45.6); Hemoglobin 10.9 gm/dl (11.8-15.2); Mean Corpuscular HGB Conc 33 % (32-34); Mean Corpuscular Hemoglobin 35 pg (28-32); Mean Corpuscular Volume 105 fl (84-94); Platelet Count 186 K/mm3 (140-440); Red Blood Count 3.15 M/mm3 (3.65-5.03); Red Cell Distribution Width 12.8 % (13.2-15.2)
[2018-07-10 04:45] LABS: BUN/Creatinine Ratio 23; Blood Urea Nitrogen 9 mg/dL (9-20); Calcium 7.8 mg/dL (8.4-10.2); Hemolysis Index 59
[2018-07-10 05:30] LABS: Band Neutrophils # (Manual) 0.1 K/mm3; Basophils % (Manual) 0 % (0.0-1.8); Eosinophils % (Manual) 0 % (0.0-4.3); Monocytes % (Manual) 0 % (0.0-7.3); Total Cells Counted 100
[2018-07-10 05:31] LABS: Platelet Estimate Consistent w Auto
[2018-07-10] MEDS: FLAGYL 500 MG/100 ML 500 MG/100 ML BAG IV SCH ×3 (05:33→22:30)
[2018-07-10] MEDS: NACL 0.9% 1000 ML 1,000 ML IV SCH (05:34)
[2018-07-10] MEDS: APRESOLINE IV PRN (11:49)
[2018-07-10] MEDS: LOVENOX SUB-Q SCH (11:49)
[2018-07-10] MEDS: SODIUM CHLORIDE FLUSH SYRINGE 10 ML IV SCH ×2 (11:50→22:31)
--- NOTE | 2018-07-10 14:29 | Gastroenterology Progress Note ---
Assessment and Plan 1. Abd pain, N/V 2. Chronic calcific pancreatitis - on CT, with cystic lesion. - CA19-9 pending-f/u results in clinic - may need outpatient EUS 3. Elevated transaminases - pattern c/w alcoholic hepatitis, and not obstruction. -continue to trend labs and supportive care - abstinence discussed/encouraged -clinically, patient is w/o GI complaints. Denies abd pain or N/V. Tolerating diet -patient may be d/c per GI standpoint with outpatient clinic follow up for further evaluation/workup 4. Mediastinal abnormality on CT - per Hospitalist Subjective Date of service: 07/10/18 Principal diagnosis: abdominal pain Interval history: Patient resting in bed w/o acute distress. Reports some continued difficultly walking but denies any GI complaints. No abd pain or N/V. Tolerating diet. Objective - Constitutional Vitals: Temp Pulse Resp BP Pulse Ox 98.2 F 103 H 20 142/85 99 07/10/18 12:35 07/10/18 12:35 07/10/18 12:35 07/10/18 12:35 07/10/18 12:35 General appearance: no acute distress - Respiratory Respiratory: bilateral: CTA - Cardiovascular Rhythm: other (tachycardia) - Gastrointestinal General gastrointestinal: Present: soft, non-tender, non-distended, normal bowel sounds - Labs CBC & Chem 7: 07/10/18 04:08 07/10/18 04:08 Labs: Laboratory Results - last 24 hr 07/10/18 07/10/18 04:08 04:08 WBC 6.1 RBC 3.15 L Hgb 10.9 L Hct 33.2 L MCV 105 H MCH 35 H MCHC 33 RDW 12.8 L Plt Count 186 [place] % (Auto) Flash Developer Add Manual Diff Complete Total Counted 100 Seg Neuts % (Manual) 97.0 H Band Neutrophils % 2.0 Lymphocytes % (Manual) 1.0 L Reactive Lymphs % (Man) 0 Monocytes % (Manual) 0 Eosinophils % (Manual) 0 Basophils % (Manual) 0 Metamyelocytes % 0 Myelocytes % 0 Promyelocytes % 0 Blast Cells % 0 Nucleated RBC % Not Reportable Seg Neutrophils # Man 5.9 Band Neutrophils # 0.1 Lymphocytes # (Manual) 0.1 L Abs React Lymphs (Man) 0.0 Monocytes # (Manual) 0.0 Eosinophils # (Manual) 0.0 Basophils # (Manual) 0.0 Metamyelocytes # 0.0 Myelocytes # 0.0 Promyelocytes # 0.0 Blast Cells # 0.0 WBC Morphology Not Reportable Hypersegmented Neuts Not Reportable Hyposegmented Neuts Not Reportable Hypogranular Neuts Not Reportable Smudge Cells Not Reportable Toxic Granulation Not Reportable Toxic Vacuolation Not Reportable Dohle Bodies Not Reportable Pelger-Huet Anomaly Not Reportable Otto Rods Not Reportable Platelet Estimate Consistent w auto Clumped Platelets Not Reportable Plt Clumps, EDTA Not Reportable Large Platelets Not Reportable Giant Platelets Not Reportable Platelet Satelliting Not Reportable Plt Morphology Comment Not Reportable RBC Morphology Not Reportable Dimorphic RBCs Not Reportable Polychromasia Not Reportable Hypochromasia Not Reportable Poikilocytosis Not Reportable Anisocytosis Not Reportable Microcytosis Not Reportable Macrocytosis Not Reportable Spherocytes Not Reportable Pappenheimer Bodies Not Reportable Sickle Cells Not Reportable Target Cells Not Reportable Tear Drop Cells Not Reportable Ovalocytes Not Reportable Helmet Cells Not Reportable [place] Neck Bodies Not Reportable [place] Rings Not Reportable [place] Cells Not Reportable Bite Cells Not Reportable Crenated Cell Not Reportable Elliptocytes Not Reportable Acanthocytes (Spur) Not Reportable Rouleaux Not Reportable Hemoglobin C Crystals Not Reportable Schistocytes Not Reportable Malaria parasites Not Reportable Joey Bodies Not Reportable Hem Pathologist Commnt No Sodium 129 L Potassium 3.6 Chloride 92.4 L Carbon Dioxide 22 Anion Gap 18 BUN 9 Creatinine 0.4 L Estimated GFR > 60 BUN/Creatinine Ratio 23 Glucose 84 Calcium 7.8 L
--- NOTE | 2018-07-10 14:57 | Progress Note ---
Assessment and Plan Assessment and plan: 58-year-old male with past medical history significant for alcohol abuse presented to the emergency department complaining of epigastric pain. Patient denied nausea, vomiting, diarrhea. In the ED CT of abdomen and pelvis was done and was significant for pancreatitis, diverticulitis and esophagitis. Diverticulitis - Patient is on IV Levaquin and Flagyl - GI consulted and recommendations appreciated Pancreatitis - Bowel rest, pain control - Consulted about cessation of using alcohol - Resolved - Patient tolerated diet Esophagitis - PPI Alcohol abuse -Patient is on CIWA protocol Deconditioning - Patient needs PT evaluation DVT prophylaxis - On Lovenox Disposition -Possible discharge tomorrow after PT evaluation. History Interval history: Patient was seen and evaluated this morning, patient said abdominal pain, nausea and vomiting is getting better. Hospitalist Physical - Physical exam Narrative exam: Not in cardiopulmonary distress. The patient appeared well nourished and normally developed. Vital signs as documented. Head exam is unremarkable. No scleral icterus . Neck is without jugular venous distension, thyromegaly, or carotid bruits. Lungs are clear to auscultation. Cardiac exam reveals regular rate and Rhythm. First and second heart sounds normal. No murmurs, rubs or gallops. Abdominal exam reveals mild abdominal tenderness. Extremities are nonedematous and both femoral and pedal pulses are normal. 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 No focal weakness. - Constitutional Vitals: Temp Pulse Resp BP Pulse Ox 98.2 F 103 H 20 142/85 99 07/10/18 12:35 07/10/18 12:35 07/10/18 12:35 07/10/18 12:35 07/10/18 12:35 General appearance: Present: no acute distress Results - Labs CBC & Chem 7: 07/10/18 04:08 07/10/18 04:08 Labs: Laboratory Last Values WBC 6.1 K/mm3 (4.5-11.0) 07/10/18 04:08 RBC 3.15 M/mm3 (3.65-5.03) L 07/10/18 04:08 Hgb 10.9 gm/dl (11.8-15.2) L 07/10/18 04:08 Hct 33.2 % (35.5-45.6) L 07/10/18 04:08 MCV 105 fl (84-94) H 07/10/18 04:08 MCH 35 pg (28-32) H 07/10/18 04:08 MCHC 33 % (32-34) 07/10/18 04:08 RDW 12.8 % (13.2-15.2) L 07/10/18 04:08 Plt Count 186 K/mm3 (140-440) 07/10/18 04:08 Lymph % (Auto) 15.4 % (13.4-35.0) 07/09/18 03:22 [place] % (Auto) [place] 07/10/18 04:08 Eos % (Auto) 0.2 % (0.0-4.3) 07/09/18 03:22 Baso % (Auto) 1.1 % (0.0-1.8) 07/09/18 03:22 Lymph # 1.0 K/mm3 (1.2-5.4) L 07/09/18 03:22 [place] # 1.0 K/mm3 (0.0-0.8) H 07/09/18 03:22 Eos # 0.0 K/mm3 (0.0-0.4) 07/09/18 03:22 Baso # 0.1 K/mm3 (0.0-0.1) 07/09/18 03:22 Add Manual Diff Complete 07/10/18 04:08 Total Counted 100 07/10/18 04:08 Seg Neutrophils % 68.0 % (40.0-70.0) 07/09/18 03:22 Seg Neuts % (Manual) 97.0 % (40.0-70.0) H 07/10/18 04:08 Band Neutrophils % 2.0 % 07/10/18 04:08 Lymphocytes % (Manual) 1.0 % (13.4-35.0) L 07/10/18 04:08 Reactive Lymphs % (Man) 0 % 07/10/18 04:08 Monocytes % (Manual) 0 % (0.0-7.3) 07/10/18 04:08 Eosinophils % (Manual) 0 % (0.0-4.3) 07/10/18 04:08 Basophils % (Manual) 0 % (0.0-1.8) 07/10/18 04:08 Metamyelocytes % 0 % 07/10/18 04:08 Myelocytes % 0 % 07/10/18 04:08 Promyelocytes % 0 % 07/10/18 04:08 Blast Cells % 0 % 07/10/18 04:08 Nucleated RBC % Not Reportable 07/10/18 04:08 Seg Neutrophils # 4.3 K/mm3 (1.8-7.7) 07/09/18 03:22 Seg Neutrophils # Man 5.9 K/mm3 (1.8-7.7) 07/10/18 04:08 Band Neutrophils # 0.1 K/mm3 07/10/18 04:08 Lymphocytes # (Manual) 0.1 K/mm3 (1.2-5.4) L 07/10/18 04:08 Abs React Lymphs (Man) 0.0 K/mm3 07/10/18 04:08 Monocytes # (Manual) 0.0 K/mm3 (0.0-0.8) 07/10/18 04:08 Eosinophils # (Manual) 0.0 K/mm3 (0.0-0.4) 07/10/18 04:08 Basophils # (Manual) 0.0 K/mm3 (0.0-0.1) 07/10/18 04:08 Metamyelocytes # 0.0 K/mm3 07/10/18 04:08 Myelocytes # 0.0 K/mm3 07/10/18 04:08 Promyelocytes # 0.0 K/mm3 07/10/18 04:08 Blast Cells # 0.0 K/mm3 07/10/18 04:08 WBC Morphology Not Reportable 07/10/18 04:08 Hypersegmented Neuts Not Reportable 07/10/18 04:08 Hyposegmented Neuts Not Reportable 07/10/18 04:08 Hypogranular Neuts Not Reportable 07/10/18 04:08 Smudge Cells Not Reportable 07/10/18 04:08 Toxic Granulation Not Reportable 07/10/18 04:08 Toxic Vacuolation Not Reportable 07/10/18 04:08 Dohle Bodies Not Reportable 07/10/18 04:08 Pelger-Huet Anomaly Not Reportable 07/10/18 04:08 Otto Rods Not Reportable 07/10/18 04:08 Platelet Estimate Consistent w auto 07/10/18 04:08 Clumped Platelets Not Reportable 07/10/18 04:08 Plt Clumps, EDTA Not Reportable 07/10/18 04:08 Large Platelets Not Reportable 07/10/18 04:08 Giant Platelets Not Reportable 07/10/18 04:08 Platelet Satelliting Not Reportable 07/10/18 04:08 Plt Morphology Comment Not Reportable 07/10/18 04:08 RBC Morphology Not Reportable 07/10/18 04:08 Dimorphic RBCs Not Reportable 07/10/18 04:08 Polychromasia Not Reportable 07/10/18 04:08 Hypochromasia Not Reportable 07/10/18 04:08 Poikilocytosis Not Reportable 07/10/18 04:08 Anisocytosis Not Reportable 07/10/18 04:08 Microcytosis Not Reportable 07/10/18 04:08 Macrocytosis Not Reportable 07/10/18 04:08 Spherocytes Not Reportable 07/10/18 04:08 Pappenheimer Bodies Not Reportable 07/10/18 04:08 Sickle Cells Not Reportable 07/10/18 04:08 Target Cells Not Reportable 07/10/18 04:08 Tear Drop Cells Not Reportable 07/10/18 04:08 Ovalocytes Not Reportable 07/10/18 04:08 Helmet Cells Not Reportable 07/10/18 04:08 [place] Bodies Not Reportable 07/10/18 04:08 [place] Rings Not Reportable 07/10/18 04:08 Counselor Cells Not Reportable 07/10/18 04:08 Bite Cells Not Reportable 07/10/18 04:08 Crenated Cell Not Reportable 07/10/18 04:08 Elliptocytes Not Reportable 07/10/18 04:08 Acanthocytes (Spur) Not Reportable 07/10/18 04:08 Rouleaux Not Reportable 07/10/18 04:08 Hemoglobin C Crystals Not Reportable 07/10/18 04:08 Schistocytes Not Reportable 07/10/18 04:08 Malaria parasites Not Reportable 07/10/18 04:08 Joey Bodies Not Reportable 07/10/18 04:08 Hem Pathologist Commnt No 07/10/18 04:08 PT 13.2 Sec. (12.2-14.9) 07/08/18 18:42 INR 0.95 (0.87-1.13) 07/08/18 18:42 Sodium 129 mmol/L (137-145) L 07/10/18 04:08 Potassium 3.6 mmol/L (3.6-5.0) 07/10/18 04:08 Chloride 92.4 mmol/L (98-107) L 07/10/18 04:08 Carbon Dioxide 22 mmol/L (22-30) 07/10/18 04:08 Anion Gap 18 mmol/L 07/10/18 04:08 BUN 9 mg/dL (9-20) 07/10/18 04:08 Creatinine 0.4 mg/dL (0.8-1.5) L 07/10/18 04:08 Estimated GFR > 60 ml/min 07/10/18 04:08 BUN/Creatinine Ratio 23 % 07/10/18 04:08 Glucose 84 mg/dL (75-100) 07/10/18 04:08 Calcium 7.8 mg/dL (8.4-10.2) L 07/10/18 04:08 Magnesium 2.20 mg/dL (1.7-2.3) 07/08/18 18:42 Total Bilirubin 3.00 mg/dL (0.1-1.2) H 07/08/18 18:42 Direct Bilirubin 1.2 mg/dL (0-0.2) H 07/08/18 18:42 Indirect Bilirubin 1.8 mg/dL 07/08/18 18:42 AST 173 units/L (5-40) H 07/08/18 18:42 ALT 73 units/L (7-56) H 07/08/18 18:42 Alkaline Phosphatase 88 units/L (35-129) 07/08/18 18:42 Total Creatine Kinase 2923 units/L (55-170) H 07/08/18 18:42 Troponin T < 0.010 ng/mL (0.00-0.029) 07/08/18 21:03 NT-Pro-B Natriuret Pep 497.4 pg/mL (0-900) 07/08/18 18:42 Total Protein 6.9 g/dL (6.3-8.2) 07/08/18 18:42 Albumin 3.5 g/dL (3.9-5) L 07/08/18 18:42 Albumin/Globulin Ratio 1.0 % 07/08/18 18:42 Lipase 378 units/L (13-60) H 07/08/18 18:42 Urine Color [place] (Yellow) 07/08/18 19:18 Urine Turbidity Slightly-cloudy (Clear) 07/08/18 19:18 Urine pH 6.0 (5.0-7.0) 07/08/18 19:18 Ur Specific Surveyor 1.028 (1.003-1.030) 07/08/18 19:18 Urine Protein 30 mg/dl mg/dL (Negative) 07/08/18 19:18 Urine Glucose (UA) Neg mg/dL (Negative) 07/08/18 19:18 Urine Ketones 20 mg/dL (Negative) 07/08/18 19:18 Urine Blood Sm (Negative) 07/08/18 19:18 Urine Nitrite Neg (Negative) 07/08/18 19:18 Urine Bilirubin Neg (Negative) 07/08/18 19:18 Urine Urobilinogen 4.0 mg/dL (<2.0) 07/08/18 19:18 Ur Leukocyte Esterase Neg (Negative) 07/08/18 19:18 Urine WBC (Auto) 7.0 /HPF (0.0-6.0) H 07/08/18 19:18 Urine RBC (Auto) 5.0 /HPF (0.0-6.0) 07/08/18 19:18 Hyaline Casts 1 /LPF 07/08/18 19:18 Urine Mucus Few /HPF 07/08/18 19:18
[2018-07-10] MEDS: LEVAQUIN 750MG/150ML 750 MG/150 ML BAG IV SCH (22:30)
[2018-07-11] MEDS: FLAGYL 500 MG/100 ML 500 MG/100 ML BAG IV SCH (06:10)
[2018-07-11] MEDS: NACL 0.9% 1000 ML 1,000 ML IV SCH (06:10)
[2018-07-11] MEDS: APRESOLINE IV PRN (08:12)
--- NOTE | 2018-07-11 10:12 | Discharge Summary ---
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 Patient denied nausea, vomiting, diarrhea. In the ED CT of abdomen and pelvis was done and was significant for pancreatitis, diverticulitis and esophagitis. Following admission the patient was treated with IV low, Flagyl and subsequently discharged on for diverticulitis. Patient continues to be stable ambulating. Extensive counseling provided to the patient including continued on clear liquid diet to FULL LIQUID TOLERATED. also recommended to follow with GI outpatient for EUS Diverticulitis Pancreatitis Esophagitis Deconditioning Disposition: [id number]/[place]-06 HOME UNDER [facility] Time spent for discharge: 35 mins Core Measure Documentation - Palliative Care Palliative Care/ Comfort Measures: Not Applicable - Core Measures Any of the following diagnoses?: none - VTE Discharge Requirements Deep Vein Thrombosis/Pulmonary Embolism Present on Admission: No Exam - Physical Exam Narrative exam: Not in cardiopulmonary distress. The patient appeared well nourished and normally developed. Vital signs as documented. Head exam is unremarkable. No scleral icterus . Neck is without jugular venous distension, thyromegaly, or carotid bruits. Lungs are clear to auscultation. Cardiac exam reveals regular rate and Rhythm. First and second heart sounds normal. No murmurs, rubs or gallops. Abdominal exam reveals mild abdominal tenderness. Extremities are nonedematous and both femoral and pedal pulses are normal. 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 No focal weakness. - Constitutional Vitals: Temp Pulse Resp BP Pulse Ox 97.7 F 75 22 186/98 99 07/11/18 07:53 07/11/18 07:53 07/11/18 07:53 07/11/18 07:53 07/11/18 07:53 Plan Activity: advance as tolerated, fall precautions Diet: low salt Special Instructions: other (avoid ETOH) Follow up with: PRIMARY CAREMD [Primary Care Provider] - 3-5 Days MARY ELDRIDGE MD [Staff Physician] - 7 Days
[2018-07-11] MEDS ORDERED: NORMODYNE PO SCH (11:00)
[2018-07-11 11:18] VITALS: BP 149/101
[2018-07-11] MEDS: SODIUM CHLORIDE FLUSH SYRINGE 10 ML IV SCH (11:26)
[2018-07-11] MEDS: LOVENOX SUB-Q SCH (11:27)
[2018-07-11] MEDS ORDERED: FLAGYL PO SCH (14:00)
--- NOTE | 2018-07-11 14:06 | Gastroenterology Progress Note ---
Assessment and Plan pt seen and examined, 1. abd pain improving - continue antibiotics for diverticulitis 2. Pancreas: possible chronic calcific pancreas - ca 19-9 pending - consider EUS outpt 3. Liver: increase lft's probable due to etoh - follow labs - stable for d/c, follow up otupt - will sign off, call if needed Subjective Date of service: 07/11/18 Principal diagnosis: abdominal pain Interval history: - no complaints overnight Objective - Constitutional Vitals: Temp Pulse Resp BP Pulse Ox 97.7 F 85 20 149/101 98 07/11/18 07:53 07/11/18 11:16 07/11/18 11:16 07/11/18 11:16 07/11/18 11:16 General appearance: no acute distress - EENT Eyes: PERRL - Respiratory Respiratory: bilateral: CTA - Cardiovascular Rhythm: regular Heart Sounds: Present: S1 & S2 - Gastrointestinal General gastrointestinal: Present: soft, non-tender, non-distended - Labs CBC & Chem 7: 07/10/18 04:08 07/10/18 04:08
[2018-07-11] MEDS ORDERED: LEVAQUIN PO SCH (22:00)
== END 2018-07-11 16:23 | disposition home or self-care (01) | DRG 391 ==
LOC: ED 17:14 → 4A 21:58
PROVIDERS: ADMIT Internal Medicine; ATTEND Internal Medicine
PROC: 3E0234Z Introduction of Serum, Toxoid and Vaccine into Muscle, Percutaneous Approach (ICD-10-PCS; principal; 2018-07-11)
DX: K57.32 Diverticulitis of large intestine without perforation or abscess without bleeding (principal); K85.90 Acute pancreatitis without necrosis or infection, unspecified; M62.82 Rhabdomyolysis; K86.1 Other chronic pancreatitis; E87.1 Hypo-osmolality and hyponatremia; F10.10 Alcohol abuse, uncomplicated; F17.210 Nicotine dependence, cigarettes, uncomplicated; K76.0 Fatty (change of) liver, not elsewhere classified; Y90.0 Blood alcohol level of less than 20 mg/100 ml; R74.0 Nonspecific elevation of levels of transaminase and lactic acid dehydrogenase [LDH]; K20.9 Esophagitis, unspecified; Z23 Encounter for immunization; Z71.6 Tobacco abuse counseling; Z82.49 Family history of ischemic heart disease and other diseases of the circulatory system
CPT/HCPCS: 36415; 71045; 74177; 80048; 80074; 81001; 82550; 83690; 83735; 83880; 84484; 85007; 85025; 85610; 86301; 87040; 87116; 90686; 93005; 93010; 96361; 96374; 96375; 99406; C9113; J0360; J1650; J1956; J2270; J2405; J3480; J7030; Q9967